=== PATIENT | male | born 1975 | race Hispanic/Latino ===

== ENCOUNTER 2016-11-15 02:59 | Observation (INO) | payer MEDICAID, OTHER ==
--- NOTE | 2016-11-15 04:38 | ED PDOC ---
HPI:Nausea, Vomiting, Diarrhea Time Seen by Provider: 11/15/16 03:05 Chief Complaint (Nursing): Abdominal Pain Chief Complaint (Provider): Vomiting History Per: Patient History/Exam Limitations: no limitations Onset/Duration Of Symptoms: Hrs (since earlier tonight) Current Symptoms Are (Timing): Still Present Quality Of Discomfort: Other (bloated) Associated Symptoms: Vomiting (x1 episode in ED) Additional Complaint(s): 40 year old male presents to ED with complaints of bloating and dizziness since earlier tonight and has no past medical history. Patient states he was smoking cigarettes and drank several gallons of water while playing an online card game. Notes that afterwards, he felt that his body was swollen. (+) vomiting x1 episode in ED, (-) abdominal pain. PCP: None Past Medical History Reviewed: Historical Data, Nursing Documentation, Vital Signs Vital Signs: Last Vital Signs Temp 97.7 F 11/15/16 03:25 Pulse 69 11/15/16 03:25 Resp 16 11/15/16 03:25 BP 128/68 11/15/16 03:25 Pulse Ox 98 11/15/16 03:25 - Medical History PMH: Denies: Diabetes, Hepatitis, Chronic Kidney Disease, Seizures, Sexually Transmitted Disease - Surgical History Surgical History: No Surg Hx - Family History Family History: States: Unknown Family Hx - Social History Current smoker - smoking cessation education provided: Yes Alcohol: > 2 Drinks/Day (history of alcohol abuse, but states he drank water this time) Drugs: Denies - Immunization History Hx Tetanus Toxoid Vaccination: No Hx Influenza Vaccination: No Hx Pneumococcal Vaccination: No - Home Medications Home Medications: Ambulatory Orders Medication Instructions Recorded Disulfiram 250 mg PO DAILY 02/21/16 Emtricitabine/Tenofovir Diso 200 - 300 mg PO DAILY 02/21/16 [Truvada 200 MG-300 MG] Gabapentin [Neurontin] 600 mg PO TID 02/21/16 Propranolol HCl [Propranolol HCl 60 mg PO DAILY 02/21/16 ER] Thiamine [Vitamin B1 Tab] 100 mg PO DAILY #30 tab 02/25/16 chlordiazePOXIDE [Librium] 50 mg PO Q6 #15 cap 02/25/16 - Allergies Allergies/Adverse Reactions: Allergies Allergy/AdvReac Type Severity Reaction Status Date / Time No Known Allergies Allergy Verified 06/12/13 13:04 Review of Systems ROS Statement: Except As Marked, All Systems Reviewed And Found Negative Gastrointestinal: Positive for: Vomiting, Other (bloated feeling). Negative for : Abdominal Pain Neurological: Positive for: Dizziness Physical Exam - Reviewed Nursing Documentation Reviewed: Yes Vital Signs Reviewed: Yes - Physical Exam Appears: Positive for: Non-toxic, No Acute Distress Head Exam: Positive for: ATRAUMATIC, NORMAL INSPECTION, NORMOCEPHALIC Skin: Positive for: Normal Color, Warm, Dry Eye Exam: Positive for: EOMI, Normal appearance, PERRL ENT: Positive for: Normal ENT Inspection Neck: Positive for: Normal, Painless ROM Cardiovascular/Chest: Positive for: Regular Rate, Rhythm Respiratory: Positive for: Normal Breath Sounds. Negative for: Respiratory Distress Gastrointestinal/Abdominal: Positive for: Normal Exam, Bowel Sounds, Soft Back: Positive for: Normal Inspection Extremity: Positive for: Normal ROM Neurologic/Psych: Positive for: Alert, Oriented - Laboratory Results Result Diagrams: 11/15/16 05:02 11/15/16 10:10 - ECG O2 Sat by Pulse Oximetry: 98 (RA) Pulse Ox Interpretation: Normal Medical Decision Making Medical Decision Makin Initial impression: drinking a lot of water r/o hyponatremia - possibly psychogneic polydispia Initial plan: * Labs 0440 * EtOH serum 0535 Labs reviewed: low level of sodium. Patient has hyponatremia. Will be admitted under Dr. Branham - INPATIENT TELE pt will need fluid restriction in the mantime pt made aware and agreable with the plan * EKG * Urine C&S * UA Scribe Attestation: Documented by Marcie Mclaughlin acting as a scribe for Megha Gutierrez MD. Scribe Attestation: All medical record entries made by the Scribe were at my direction and personally dictated by me. I have reviewed the chart and agree that the record accurately reflects my personal performance of the history, physical exam, medical decision making, and the department course for this patient. I have also personally directed, reviewed, and agree with the discharge instructions and disposition. Disposition - Clinical Impression Clinical Impression: Abdominal pain, Hyponatremia - Patient ED Disposition Is Patient to be Admitted: Yes Counseled Patient/Family Regarding: Studies Performed, Diagnosis, Need For Followup - Disposition Disposition Time: 05:10 Condition: STABLE - Pt Status Changed To: Hospital Disposition Of: Inpatient (TELE) - Admit Certification Admit to Inpatient:: After my assessment, the patient will require hospitalization for at least two midnights. This is because of the severity of symptoms shown, intensity of services needed, and/or the medical risk in this patient being treated as an outpatient.
[2016-11-15 05:11] LABS: BASO % 0.3 % (0.0-2.0); EOS # 0.1 K/uL (0.0-0.7); LYMPH # 1.7 K/uL (1.0-4.3); MEAN CELL VOLUME 90.9 fl (80.0-94.0); MEAN CORPUSCULAR HGB CONC 35.2 g/dL (33.0-37.0); MEAN PLATELET VOLUME 7.6 fl (7.2-11.7); MONO # 0.5 K/uL (0.0-0.8); MONO % 6.2 % (0.0-10.0); NEUT # 6.3 K/uL (1.8-7.0); NEUT % 72.5 % (50.0-75.0); WHITE BLOOD COUNT 8.6 K/uL (4.8-10.8)
[2016-11-15 05:22] LABS: ALB/GLOB RATIO 1.5 (1.0-2.1); ALKALINE PHOSPHATASE 88 U/L (38-126); ALT/SGPT 46 U/L (21-72); AST/SGOT 31 U/L (17-59); BILIRUBIN,TOTAL 0.6 mg/dl (0.2-1.3); BLOOD UREA NITROGEN 7 mg/dl (9-20); CALCIUM 8.9 mg/dL (8.4-10.2); CARBON DIOXIDE 24 mmol/L (22-30); CHLORIDE 91 mmol/L (98-107); GFR AFRICAN-AMERICAN > 60; GLUCOSE,RANDOM 108 mg/dL (75-110); POTASSIUM 4.6 MMOL/L (3.6-5.0); SODIUM 124 mmol/l (132-148); TOTAL PROTEIN 6.6 G/DL (6.3-8.2)
--- NOTE | 2016-11-15 05:59 | CP.PCM.HP ---
Present on Admission - Present on Admission Any Indicators Present on Admission: No Past Patient History - Infectious Disease Hx of Infectious Diseases: None - Past Medical History & Family History Past Medical History?: Yes - Past Social History Alcohol: > 2 Drinks/Day (history of alcohol abuse, but states he drank water this time) Drugs: Denies - CARDIAC Hx Hypertension: Yes - PULMONARY Hx Respiratory Disorders: No Hx Tuberculosis: No - NEUROLOGICAL Hx Seizures: No - HEENT Hx HEENT Problems: No - RENAL Hx Chronic Kidney Disease: No - ENDOCRINE/METABOLIC Hx Endocrine Disorders: No - HEMATOLOGICAL/ONCOLOGICAL Hx Human Immunodeficiency Virus (HIV): Yes - INTEGUMENTARY Hx Dermatological Problems: No - MUSCULOSKELETAL/RHEUMATOLOGICAL Hx Musculoskeletal Disorders: No - GASTROINTESTINAL Hx Gastrointestinal Disorders: No - GENITOURINARY/GYNECOLOGICAL Hx Sexually Transmitted Disorders: No - PSYCHIATRIC Hx Psychophysiologic Disorder: No - SURGICAL HISTORY Hx Surgeries: No - ANESTHESIA Hx Anesthesia: No Meds Allergies/Adverse Reactions: Allergies Allergy/AdvReac Type Severity Reaction Status Date / Time No Known Allergies Allergy Verified 06/12/13 13:04 Physical Exam - Constitutional Appears: No Acute Distress - Head Exam Head Exam: ATRAUMATIC, NORMOCEPHALIC - Eye Exam Eye Exam: EOMI, PERRL - ENT Exam ENT Exam: Mucous Membranes Moist - Neck Exam Neck exam: Positive for: Full Rom - Respiratory Exam Respiratory Exam: Clear to Auscultation Bilateral, NORMAL BREATHING PATTERN - Cardiovascular Exam Cardiovascular Exam: REGULAR RHYTHM, +S1, +S2 - GI/Abdominal Exam GI & Abdominal Exam: Normal Bowel Sounds, Soft - Extremities Exam Extremities exam: Positive for: full ROM, normal inspection, pedal edema - Neurological Exam Neurological exam: Alert, CN II-XII Intact, Oriented x3 - Psychiatric Exam Psychiatric exam: Normal Affect, Normal Mood - Skin Skin Exam: Dry, Warm Results - Vital Signs Recent Vital Signs: Last Vital Signs Temp 97.7 F 11/15/16 03:25 Pulse 69 11/15/16 03:25 Resp 16 11/15/16 03:25 BP 128/68 11/15/16 03:25 Pulse Ox 98 11/15/16 05:46 - Labs Result Diagrams: 11/15/16 05:02 11/15/16 05:02 Assessment & Plan (1) Hyponatremia Assessment and Plan: 40 y/o male with hyponatremia in setting of EtOH abuse and ?HIV. -Admit tele -TSH, serum/urine osms, urine lytes -CXR PA/Lat -Fluid restrict to 1.5 L daily -Repeat BMP in AM -Ativan PRN for w/d symptoms or seizures 2/2 EtOH -Lovenox for DVT PPx Status: Acute (2) Alcohol abuse Status: Acute Priority: High (3) HIV (human immunodeficiency virus infection) Status: Acute (4) DVT prophylaxis Status: Acute
[2016-11-15 06:22] LABS: RBC URINE 5 /hpf (0-3); URINE BACTERIA MOD (<OCC); URINE BILIRUBIN NEGATIVE (NEGATIVE); URINE BLOOD NEGATIVE (NEGATIVE); URINE COLOR YELLOW (YELLOW); URINE GLUCOSE (UA) NEG (Normal); URINE KETONE NEGATIVE (NEGATIVE); URINE LEUKOCYTE ESTERASE NEG Leu/uL (Negative); URINE PROTEIN NEGATIVE (NEGATIVE); URINE UROBILINOGEN 0.2-1.0 mg/dL (0.2-1.0); WBC URINE 4 /hpf (0-5)
[2016-11-15 08:43] VITALS: BP 128/76; RESP 18; TEMP 97.6; O2SAT 98
[2016-11-15] MEDS ORDERED: Enoxaparin 40 mg Syringe SC SCH (09:00)
--- NOTE | 2016-11-15 10:41 | RAD ---
HISTORY: hyponatremia COMPARISON: No prior. TECHNIQUE: Chest PA and lateral FINDINGS: LUNGS: Suspect minor bibasilar atelectasis PLEURA: No significant pleural effusion identified. No pneumothorax apparent. CARDIOVASCULAR: Normal. OSSEOUS STRUCTURES: No significant abnormalities. VISUALIZED UPPER ABDOMEN: Normal. OTHER FINDINGS: None. IMPRESSION: Suspect minor bibasilar atelectasis
[2016-11-15 10:45] LABS: BLOOD UREA NITROGEN 6 mg/dl (9-20); CALCIUM 9.8 mg/dL (8.4-10.2); CARBON DIOXIDE 27 mmol/L (22-30); CHLORIDE 99 mmol/L (98-107); GFR AFRICAN-AMERICAN > 60; GLUCOSE,RANDOM 99 mg/dL (75-110); POTASSIUM 4.4 MMOL/L (3.6-5.0); SODIUM 138 mmol/l (132-148)
--- NOTE | 2016-11-15 11:11 | CP.PCM.DIS ---
Provider - Provider Date of Admission: 11/15/16 05:40 Attending physician: Eugenie Branham MD Primary care physician: none Consults: None Time Spent in preparation of Discharge (in minutes): 15 Hospital Course - Lab Results Lab Results: Most Recent Lab Values WBC 8.6 K/uL (4.8-10.8) D 11/15/16 05:02 RBC 4.29 Mil/uL (4.40-5.90) L 11/15/16 05:02 Hgb 13.7 g/dL (12.0-18.0) 11/15/16 05:02 Hct 39.0 % (35.0-51.0) 11/15/16 05:02 MCV 90.9 fl (80.0-94.0) 11/15/16 05:02 MCH 32.0 pg (27.0-31.0) H 11/15/16 05:02 MCHC 35.2 g/dL (33.0-37.0) 11/15/16 05:02 RDW 13.0 % (11.5-14.5) 11/15/16 05:02 Plt Count 237 K/uL (130-400) D 11/15/16 05:02 MPV 7.6 fl (7.2-11.7) 11/15/16 05:02 Neut % (Auto) 72.5 % (50.0-75.0) 11/15/16 05:02 Lymph % (Auto) 20.0 % (20.0-40.0) 11/15/16 05:02 [place] % (Auto) 6.2 % (0.0-10.0) 11/15/16 05:02 Eos % (Auto) 1.0 % (0.0-4.0) 11/15/16 05:02 Baso % (Auto) 0.3 % (0.0-2.0) 11/15/16 05:02 Neut # 6.3 K/uL (1.8-7.0) 11/15/16 05:02 Lymph # 1.7 K/uL (1.0-4.3) 11/15/16 05:02 [place] # 0.5 K/uL (0.0-0.8) 11/15/16 05:02 Eos # 0.1 K/uL (0.0-0.7) 11/15/16 05:02 Baso # 0.0 K/uL (0.0-0.2) 11/15/16 05:02 Sodium 138 mmol/l (132-148) 11/15/16 10:10 Potassium 4.4 MMOL/L (3.6-5.0) 11/15/16 10:10 Chloride 99 mmol/L (98-107) 11/15/16 10:10 Carbon Dioxide 27 mmol/L (22-30) 11/15/16 10:10 Anion Gap 16 (10-20) 11/15/16 10:10 BUN 6 mg/dl (9-20) L 11/15/16 10:10 Creatinine 0.7 mg/dL (0.8-1.5) L 11/15/16 10:10 Est GFR ( Amer) > 60 11/15/16 10:10 Est GFR (Non-Af Amer) > 60 11/15/16 10:10 Random Glucose 99 mg/dL (75-110) 11/15/16 10:10 Serum Osmolality 267 mosm/kg (272-300) L 11/15/16 06:15 Calcium 9.8 mg/dL (8.4-10.2) 11/15/16 10:10 Total Bilirubin 0.6 mg/dl (0.2-1.3) 11/15/16 05:02 AST 31 U/L (17-59) 11/15/16 05:02 ALT 46 U/L (21-72) 11/15/16 05:02 Alkaline Phosphatase 88 U/L (38-126) 11/15/16 05:02 Total Protein 6.6 G/DL (6.3-8.2) 11/15/16 05:02 Albumin 4.0 g/dL (3.5-5.0) 11/15/16 05:02 Globulin 2.7 gm/dL (2.2-3.9) 11/15/16 05:02 Albumin/Globulin Ratio 1.5 (1.0-2.1) 11/15/16 05:02 TSH 3rd Generation 1.16 mIU/ML (0.46-4.68) 11/15/16 06:00 Urine Color Yellow (YELLOW) 11/15/16 05:42 Urine Clarity Cloudy (Clear) 11/15/16 05:42 Urine pH 5.0 (5.0-8.0) 11/15/16 05:42 Ur Specific [place] 1.019 (1.003-1.030) 11/15/16 05:42 Urine Protein Negative mg/dL (NEGATIVE) 11/15/16 05:42 Urine Glucose (UA) Neg mg/dL (Normal) 11/15/16 05:42 Urine Ketones Negative mg/dL (NEGATIVE) 11/15/16 05:42 Urine Blood Negative (NEGATIVE) 11/15/16 05:42 Urine Nitrate Negative (NEGATIVE) 11/15/16 05:42 Urine Bilirubin Negative (NEGATIVE) 11/15/16 05:42 Urine Urobilinogen 0.2-1.0 mg/dL (0.2-1.0) 11/15/16 05:42 Ur Leukocyte Esterase Neg [place]/uL (Negative) 11/15/16 05:42 Urine RBC (Auto) 5 /hpf (0-3) H 11/15/16 05:42 Urine Microscopic WBC 4 /hpf (0-5) 11/15/16 05:42 Urine Bacteria Mod (<OCC) H 11/15/16 05:42 Urine Osmolality 559 mosm/kg (300-1000) 11/15/16 06:15 Ur Random Sodium 87 meq/L 11/15/16 06:15 Ur Random Potassium 43.4 mmol/L 11/15/16 06:15 Alcohol, Quantitative < 10 mg/dl (0-10) 11/15/16 05:34 - Hospital Course Hospital Course: 40 year old male presented to ED with complaints of bloating and dizziness since earlier last night. Patient stated he was smoking cigarettes and drank several gallons of water while playing an online card game. Notes that afterwards, he felt that his body was swollen. (+) vomiting x1 episode in ED, (- ) abdominal pain. In ED found to have Na 124. He was placed under observation for hyponatremia and fluid restriction Serum osmolality came back as 267 Repeat BMP in 6 hours showed corrected Na 138. Counselled patient in good po intake ' Will discharge patient home in stable conditions Counselled on ETOH use He is on HIV medications but unwilling to provide explanation as to why. av= dvise to follow up with his PMD Dx Hyponatremia secondary to excessive H2O intake EtoH use Discharge Exam - Head Exam Head Exam: ATRAUMATIC, NORMAL INSPECTION, NORMOCEPHALIC - Eye Exam Eye Exam: EOMI, Normal appearance, PERRL Pupil Exam: NORMAL ACCOMODATION - ENT Exam ENT Exam: Normal Exam, Normal External Ear Exam - Neck Exam Neck exam: Full Rom, Normal Inspection - Respiratory Exam Respiratory Exam: Clear to PA & Lateral, NORMAL BREATHING PATTERN. absent: Rales, Rhonchi, Wheezes - Cardiovascular Exam Cardiovascular Exam: REGULAR RHYTHM, RRR, +S1, +S2. absent: JVD - GI/Abdominal Exam GI & Abdominal Exam: Normal Bowel Sounds, Soft. absent: Distended, Guarding, Rebound, Tenderness - Rectal Exam Rectal Exam: Deferred - Extremities Exam Extremities exam: normal capillary refill, normal inspection, pedal pulses present - Back Exam Back exam: NORMAL INSPECTION - Neurological Exam Neurological exam: Alert, CN II-XII Intact, Oriented x3, Reflexes Normal - Psychiatric Exam Psychiatric exam: Normal Affect, Normal Mood - Skin Skin Exam: Dry, Intact, Normal Color, Warm Discharge Plan - Follow Up Plan Condition: STABLE Disposition: HOME/ ROUTINE Patient education suggested?: Yes Instructions: Hyponatremia (DC), Alcohol Use Disorder (DC) Referrals: [facility] [place] [Outside]
[2016-11-15 11:22] VITALS: PULSE 68
--- NOTE | 2016-11-19 18:43 | CARD ---
APPROVED REPORT EKG Measurement Heart [id number] <Conclusion> Normal sinus rhythm Normal ECG
== END 2016-11-15 12:15 | disposition home or self-care (01) ==
LOC: H.ER 02:59 → INTOOBSV 05:40 → H.ERHOLD 05:40 → H.TEL 08:20
PROVIDERS: ADMIT Internal Medicine; ATTEND Internal Medicine
DX: E87.1 Hypo-osmolality and hyponatremia (principal); Z72.89 Other problems related to lifestyle; F17.210 Nicotine dependence, cigarettes, uncomplicated
CPT/HCPCS: 71020; 80053; 80320; 81003; 82436; 83930; 83935; 84132; 84300; 84443; 85025; 87086; 93005; 99285; G0378

== ENCOUNTER 2017-01-26 12:36 | Emergency (ER) | payer OTHER ==
--- NOTE | 2017-01-26 13:04 | ED PDOC ---
HPI: Psych/Substance Abuse Time Seen by Provider: 01/26/17 12:54 Chief Complaint (Nursing): Alcohol Ingestion Chief Complaint (Provider): etoh History Per: Patient History/Exam Limitations: no limitations Onset/Duration Of Symptoms: Mins (prior to arrival) Current Symptoms Are (Timing): Still Present Additional Complaint(s): Mir Dominguez is a 41 year old male who presents to the ED due to alcohol intoxication. Patient is requesting detox and stated he was sober for 300 days, but began drinking again recently. Patient initially denied suicidal or homicidal ideations, but later stated "If left to my own devices I'll drink myself to ." PMD: En Aponte MD Past Medical History Reviewed: Historical Data, Nursing Documentation, Vital Signs Vital Signs: Last Vital Signs Temp 97.1 F L 01/26/17 12:46 Pulse 115 H 01/26/17 12:46 Resp 20 01/26/17 12:46 BP 156/91 H 01/26/17 12:46 Pulse Ox 99 01/26/17 12:46 - Medical History PMH: Anxiety, HTN - Surgical History Surgical History: No Surg Hx - Family History Family History: States: No Known Family Hx - Living Arrangements Living Arrangements: Alone - Social History Current smoker - smoking cessation education provided: Yes Alcohol: Other (Was sober 300 days, started drinking again) Drugs: Denies - Home Medications Home Medications: Ambulatory Orders Medication Instructions Recorded Disulfiram 250 mg PO DAILY 02/21/16 Emtricitabine/Tenofovir Diso 200 - 300 mg PO DAILY 02/21/16 [Truvada 200 MG-300 MG] Gabapentin [Neurontin] 600 mg PO TID 02/21/16 Propranolol HCl [Propranolol HCl 60 mg PO DAILY 02/21/16 ER] Thiamine [Vitamin B1 Tab] 100 mg PO DAILY #30 tab 02/25/16 chlordiazePOXIDE [Librium] 50 mg PO Q6 #15 cap 02/25/16 - Allergies Allergies/Adverse Reactions: Allergies Allergy/AdvReac Type Severity Reaction Status Date / Time No Known Allergies Allergy Verified 06/12/13 13:04 Review of Systems ROS Statement: Except As Marked, All Systems Reviewed And Found Negative Cardiovascular: Negative for: Chest Pain, Palpitations Gastrointestinal: Negative for: Nausea, Vomiting Psych: Positive for: Other (etoh, requesting detox) Physical Exam - Reviewed Nursing Documentation Reviewed: Yes Vital Signs Reviewed: Yes - Physical Exam Appears: Positive for: Well, Non-toxic, No Acute Distress Head Exam: Positive for: ATRAUMATIC, NORMAL INSPECTION, NORMOCEPHALIC Skin: Positive for: Normal Color. Negative for: Rash Eye Exam: Positive for: Normal appearance Cardiovascular/Chest: Positive for: Regular Rate, Rhythm. Negative for: Murmur Respiratory: Positive for: Normal Breath Sounds. Negative for: Respiratory Distress Neurologic/Psych: Positive for: Alert, Oriented, Gait (steady) - Laboratory Results Result Diagrams: 01/26/17 13:37 01/26/17 13:37 - ECG Interpretation Of ECG: NSR 96 bpm, no acute finding, reviewed by PA and ED attending O2 Sat by Pulse Oximetry: 99 (RA) Pulse Ox Interpretation: Normal - Other Rad bedside chest X-Ray: Interpreted by Me, Viewed By Me X-Ray Interpretation: no acute finding Medical Decision Making Medical Decision Making: Time: 13:02 Initial Impression: 41 year old male with alcohol intoxication. Patient is requesting detox bed. Plan: --EKG --Alcohol serum --CMP --Drug Screen, Urine --CBC --X-Ray Chest Portable --Urinalysis --1:1 --Reevaluation As per crisis counselor and psychiatrist division head Dr. Cox, patient does not meet criteria for psychiatric admission. [facility] does have detox bed available however patient is declining spot at this time. He is stable for discharge. Patient was given list of local detox facilities for outpatient follow-up. Scribe Attestation: Documented by Carlito Sapp, acting as a scribe for Mary Guardado PA-C Provider Scribe Attestation: All medical record entries made by the Scribe were at my direction and personally dictated by me. I have reviewed the chart and agree that the record accurately reflects my personal performance of the history, physical exam, medical decision making, and the department course for this patient. I have also personally directed, reviewed, and agree with the discharge instructions and disposition. Disposition - Clinical Impression Clinical Impression: Alcohol abuse, Alcohol abuse with intoxication - Patient ED Disposition Is Patient to be Admitted: No Counseled Patient/Family Regarding: Diagnosis, Need For Followup - Disposition Referrals: [facility] [Outside] Disposition: Routine/Home Disposition Time: 18:13 Condition: STABLE Instructions: Alcohol Intoxication (ED), Abuse of Alcohol (ED) Forms: [employer] (Angolan) Results - Lab Results Lab Results: 01/26/17 01/26/17 01/26/17 13:37 13:37 13:37 WBC 8.7 RBC 5.14 Hgb 16.2 D Hct 46.7 MCV 90.9 MCH 31.5 H MCHC 34.6 RDW 13.1 Plt Count 286 Sodium Potassium Chloride Carbon Dioxide Anion Gap BUN Creatinine Est GFR ( Amer) Est GFR (Non-Af Amer) Random Glucose Calcium Total Bilirubin AST ALT Alkaline Phosphatase Total Protein Albumin Globulin Albumin/Globulin Ratio Urine Color Yellow Urine Clarity Slighty-cloudy Urine pH 6.0 Ur Specific [place] 1.028 Urine Protein 100 Urine Glucose (UA) 50 Urine Ketones 80 Urine Blood Small Urine Nitrate Negative Urine Bilirubin Negative Urine Urobilinogen 0.2-1.0 Ur Leukocyte Esterase Neg Urine RBC (Auto) 8 H Urine Microscopic WBC 1 Ur Squamous Epith Cells < 1 Urine Opiates Screen Negative Urine Methadone Screen Negative Ur Barbiturates Screen Negative Ur Phencyclidine Scrn Negative Ur Amphetamines Screen Negative U Benzodiazepines Scrn Positive U Oth Cocaine Metabols Negative U Cannabinoids Screen Negative Alcohol, Quantitative 01/26/17 13:37 WBC RBC Hgb Hct MCV MCH MCHC RDW Plt Count Sodium 147 Potassium 4.1 Chloride 104 Carbon Dioxide 23 Anion Gap 23 H BUN 10 Creatinine 0.7 L Est GFR ( Amer) > 60 Est GFR (Non-Af Amer) > 60 Random Glucose 89 Calcium 8.8 Total Bilirubin 0.8 AST 37 ALT 35 Alkaline Phosphatase 111 Total Protein 7.8 Albumin 4.8 Globulin 3.0 Albumin/Globulin Ratio 1.6 Urine Color Urine Clarity Urine pH Ur Specific [place] Urine Protein Urine Glucose (UA) Urine Ketones Urine Blood Urine Nitrate Urine Bilirubin Urine Urobilinogen Ur Leukocyte Esterase Urine RBC (Auto) Urine Microscopic WBC Ur Squamous Epith Cells Urine Opiates Screen Urine Methadone Screen Ur Barbiturates Screen Ur Phencyclidine Scrn Ur Amphetamines Screen U Benzodiazepines Scrn U Oth Cocaine Metabols U Cannabinoids Screen Alcohol, Quantitative 276 H
[2017-01-26 13:47] LABS: HEMATOCRIT 46.7 % (35.0-51.0); MEAN CELL VOLUME 90.9 fl (80.0-94.0); MEAN CORPUSCULAR HEMOGLOBIN 31.5 pg (27.0-31.0); MEAN CORPUSCULAR HGB CONC 34.6 g/dL (33.0-37.0); RED CELL DISTRIBUTION WIDTH 13.1 % (11.5-14.5); WHITE BLOOD COUNT 8.7 K/uL (4.8-10.8)
[2017-01-26 14:07] LABS: URINE BILIRUBIN NEGATIVE (NEGATIVE); URINE BLOOD SMALL (NEGATIVE); URINE COLOR YELLOW (YELLOW); URINE GLUCOSE (UA) 50 mg/dL (Normal); URINE KETONE 80 mg/dL (NEGATIVE); URINE LEUKOCYTE ESTERASE NEG Leu/uL (Negative); URINE PROTEIN 100 mg/dL (NEGATIVE); URINE UROBILINOGEN 0.2-1.0 mg/dL (0.2-1.0); WBC URINE 1 /hpf (0-5)
[2017-01-26 14:11] LABS: RBC URINE 8 /hpf (0-3)
--- NOTE | 2017-01-26 14:12 | RAD ---
HISTORY: clearance COMPARISON: 11/15/2016 FINDINGS: LUNGS: No active pulmonary disease. PLEURA: No significant pleural effusion identified, no pneumothorax apparent. CARDIOVASCULAR: Normal. OSSEOUS STRUCTURES: No significant abnormalities. VISUALIZED UPPER ABDOMEN: Normal. OTHER FINDINGS: None. IMPRESSION: No active disease.
[2017-01-26 14:21] LABS: ALB/GLOB RATIO 1.6 (1.0-2.1); ALCOHOL SERUM 276 mg/dl (0-10); ALKALINE PHOSPHATASE 111 U/L (38-126); ALT/SGPT 35 U/L (21-72); AST/SGOT 37 U/L (17-59); BILIRUBIN,TOTAL 0.8 mg/dl (0.2-1.3); BLOOD UREA NITROGEN 10 mg/dl (9-20); CALCIUM 8.8 mg/dL (8.4-10.2); CARBON DIOXIDE 23 mmol/L (22-30); CHLORIDE 104 mmol/L (98-107); GFR AFRICAN-AMERICAN > 60; GLUCOSE,RANDOM 89 mg/dL (75-110); POTASSIUM 4.1 MMOL/L (3.6-5.0); SODIUM 147 mmol/l (132-148); TOTAL PROTEIN 7.8 G/DL (6.3-8.2)
[2017-01-26 18:24] VITALS: BP 139/89; PULSE 100; RESP 18; TEMP 98; O2SAT 100
--- NOTE | 2017-01-28 17:57 | CARD ---
APPROVED REPORT EKG Measurement Heart [id number] ID [id number] <Conclusion> Normal sinus rhythm Possible Left atrial enlargement Borderline ECG
== END 2017-01-26 18:25 | disposition home or self-care (01) ==
LOC: H.ER 12:36
DX: F10.129 Alcohol abuse with intoxication, unspecified (principal); F41.9 Anxiety disorder, unspecified; I10 Essential (primary) hypertension; F17.200 Nicotine dependence, unspecified, uncomplicated

== ENCOUNTER 2017-12-05 21:38 | Emergency (ER) | payer OTHER ==
[2017-12-05 22:13] VITALS: BP 140/90; PULSE 100; RESP 18; TEMP 97.8; O2SAT 99
--- NOTE | 2017-12-05 22:38 | ED PDOC ---
HPI: Psych/Substance Abuse Time Seen by Provider: 12/05/17 22:18 Chief Complaint (Nursing): Psychiatric Evaluation Chief Complaint (Provider): Psychiatric Evaluation ED Caveat: Intoxicated History Per: Patient History/Exam Limitations: no limitations Onset/Duration Of Symptoms: Hrs Current Symptoms Are (Timing): Still Present Suicide/Self Injury Attempted (Context): None Modifying Factor(s): Alcohol Additional Complaint(s): 42 y/o female with a PMHx of Central Tremors presents to the ED after being dropped off by friend due to alcohol intoxication. Patient ambulated into the ED. Patient states he was supposed to run a [employer] but was unable to because of intoxication therefore friend brought him here. Patient additionally reports he was 250 days sober until 13 days ago when he began drinking on and off. However, patient admits to drinking excessively today. Denies suicidal id eation, homicidal ideation and hallucinations. PMD: None Provided Past Medical History Reviewed: Historical Data, Nursing Documentation, Vital Signs Vital Signs: Last Vital Signs Temp 97.8 F 12/05/17 22:08 Pulse 100 H 12/05/17 22:08 Resp 18 12/05/17 22:08 BP 140/90 12/05/17 22:08 Pulse Ox 99 12/05/17 22:08 - Medical History PMH: Anxiety Denies: Diabetes, Hepatitis, HIV, HTN, Chronic Kidney Disease, Seizures, Sexually Transmitted Disease - Surgical History Surgical History: No Surg Hx - Family History Family History: States: Unknown Family Hx - Social History Current smoker - smoking cessation education provided: No Alcohol: > 2 Drinks/Day Drugs: Denies - Immunization History Hx Tetanus Toxoid Vaccination: No Hx Influenza Vaccination: No Hx Pneumococcal Vaccination: No - Home Medications Home Medications: Ambulatory Orders Medication Instructions Recorded Disulfiram 250 mg PO DAILY 02/21/16 Emtricitabine/Tenofovir Diso 200 - 300 mg PO DAILY 02/21/16 [Truvada 200 MG-300 MG] Gabapentin [Neurontin] 600 mg PO TID 02/21/16 Propranolol HCl [Propranolol HCl 60 mg PO DAILY 02/21/16 ER] Thiamine [Vitamin B1 Tab] 100 mg PO DAILY #30 tab 02/25/16 chlordiazePOXIDE [Librium] 50 mg PO Q6 #15 cap 02/25/16 - Allergies Allergies/Adverse Reactions: Allergies Allergy/AdvReac Type Severity Reaction Status Date / Time No Known Allergies Allergy Verified 06/12/13 13:04 Review of Systems ROS Statement: Except As Marked, All Systems Reviewed And Found Negative Psych: Positive for: Other (Psychiatric Evaluation) Physical Exam - Reviewed Nursing Documentation Reviewed: Yes Vital Signs Reviewed: Yes - Physical Exam Appears: Positive for: No Acute Distress Head Exam: Positive for: ATRAUMATIC, NORMOCEPHALIC Skin: Positive for: Normal Color, Warm, Dry Eye Exam: Positive for: Normal appearance, EOMI, PERRL Neck: Positive for: Normal, Painless ROM Cardiovascular/Chest: Positive for: Regular Rate, Rhythm. Negative for: Murmur Respiratory: Positive for: Normal Breath Sounds. Negative for: Respiratory Distress Gastrointestinal/Abdominal: Positive for: Normal Exam, Soft. Negative for: Tend erness Back: Positive for: Normal Inspection, R CVA Tenderness. Negative for: L CVA Tenderness Extremity: Positive for: Normal ROM. Negative for: Deformity Neurologic/Psych: Positive for: Alert, Oriented (x3), Gait (steady). Negative for: Motor/Sensory Deficits - ECG O2 Sat by Pulse Oximetry: 99 (RA) Pulse Ox Interpretation: Normal Medical Decision Making Medical Decision Making: Time: 2234 -- Crisis to give information on alcohol intoxication. Scribe Attestation: Documented by Florinda Malloy acting as a scribe for Jaqui Healy MD. Provider Scribe Attestation: All medical record entries made by the Scribe were at my direction and personally dictated by me. I have reviewed the chart and agree that the record accurately reflects my personal performance of the history, physical exam, medical decision making, and the department course for this patient. I have also personally directed, reviewed, and agree with the discharge instructions and disposition. Disposition - Clinical Impression Clinical Impression: Alcohol abuse with intoxication - Disposition Referrals: Alcoholics Anonymous [Outside] Disposition: Routine/Home Disposition Time: 23:05 Condition: STABLE Instructions: Alcohol Abuse and Alcoholism (DC), Effects of Alcohol on Your Health Forms: [facility] (Russian)
== END 2017-12-05 23:18 | disposition home or self-care (01) ==
LOC: H.ER 21:38
DX: F10.129 Alcohol abuse with intoxication, unspecified (principal); Z00.8 Encounter for other general examination